=== PATIENT | female | born 1990 ===

== ENCOUNTER 2017-12-01 15:30 | Inpatient (IN) | payer OTHER ==
[~2017-12-01] VITALS: Ht 165.1 cm; Wt 143.8 kg
[~2017-12-01 15:30] MED LIST: FOLIC ACID0.4 MG; PRENATA CHEWAB1 EACH
[2017-12-22] MEDS ORDERED: PRENATAL TABLE1 EAC1 PO (06:09)
[2017-12-25] MEDS ORDERED: PERCOCET 5-3251 EACH PO (07:47)
== END 2017-12-25 11:55 | disposition home or self-care (01) | DRG 766 ==
LOC: OB/GYN 12-22 05:26 → LDR 12-22 05:26 → O/R 12-22 13:18 → OB/GYN 12-22 15:39
PROVIDERS: Specialist
PROC: 4A1HXCZ Monitoring of Products of Conception, Cardiac Rate, External Approach (ICD-10-PCS; 2017-12-22)
PROC: 10D00Z1 Extraction of Products of Conception, Low, Open Approach (ICD-10-PCS; principal; 2017-12-22 12:00)
DX: O65.4 Obstructed labor due to fetopelvic disproportion, unspecified (principal); O99.214 Obesity complicating childbirth; Z3A.39 39 weeks gestation of pregnancy; Z37.0 Single live birth

== ENCOUNTER 2017-12-20 17:26 | Outpatient (CLI) | payer OTHER ==
[2017-12-22] MEDS ORDERED: PRENATAL TABLE1 EAC1 PO (06:09)
== END 2017-12-21 13:04 | disposition home or self-care (01) ==
LOC: OBS/DEL 17:26
DX: O47.1 False labor at or after 37 completed weeks of gestation (principal); O99.213 Obesity complicating pregnancy, third trimester; E66.01 Morbid (severe) obesity due to excess calories; Z34.83 Encounter for supervision of other normal pregnancy, third trimester

== ENCOUNTER 2019-02-27 04:44 | Emergency (ER) | payer OTHER ==
[~2019-02-27] VITALS: Ht 165.1 cm; Wt 137.4 kg
[~2019-02-27 04:44] MED LIST changes: +PERCOCET 5-3251 EACH PO; +PRENATAL TABLE1 EAC1 PO
== END 2019-02-27 11:30 | disposition home or self-care (01) ==
LOC: ER 04:44
DX: K80.20 Calculus of gallbladder without cholecystitis without obstruction (principal)

== ENCOUNTER → 2019-03-23 | Emergency (ER) | payer OTHER ==
[~2019-03-23] VITALS: Ht 165.1 cm; Wt 136.1 kg
[~2019-03-23] MED LIST changes: +KETO10TA2 PO
== END | disposition home or self-care (01) ==
LOC: ER 02:15
DX: K80.80 Other cholelithiasis without obstruction (principal); R10.11 Right upper quadrant pain